=== PATIENT | female | born 1965 | race African-American/Black ===

== ENCOUNTER 2017-09-08 09:54 | Inpatient (IN) | payer OTHER ==
[2017-09-08 10:27] VITALS: BMI 33.3
--- NOTE | 2017-09-08 12:08 | HP ---
CIWA Score - CIWA Score Nausea/Vomitin-Mild Nausea/No Vomiting Muscle Tremors: 4-Moderate,w/Arms Extend Anxiety: 4-Mod. Anxious/Guarded Agitation: 4-Moderately Restless Paroxysmal Sweats: 1-Minimal Palms Moist Orientation: 2-Disoriented Date<2 days Tacttile Disturbances: 1-Very Mild Itch/Numbness Auditory Disturbances: 0-None Visual Disturbances: 0-None Headache: 1-Very Mild CIWA-Ar Total Score: 18 Admission ROS S - HPI Chief Complaint: withdrawal sx Allergies/Adverse Reactions: Allergies Allergy/AdvReac Type Severity Reaction Status Date / Time No Known Allergies Allergy Verified 09/08/17 10:37 History of Present Illness: 51 years old female with long history of alcohol nicotine dependence has hypertension asthma hepatitis c treated bipolar ii methadone 110 mg po daily is admitted to detox Exam Limitations: No Limitations - Ebola screening Have you traveled outside of the country in the last 21 days: No Have you had contact with anyone from an Ebola affected area: No Have you been sick,other than usual withdrawal symptoms: No Do you have a fever: No - Review of Systems Constitutional: Changes in sleep, Weight Stable EENT: reports: Blurred Vision (reading eye glasses) Respiratory: reports: SOB with Exertion, Productive cough (light brownish) Cardiac: reports: No Symptoms Reported GI: reports: Nausea, Poor Fluid Intake, Abdominal cramping : reports: No Symptoms Reported Musculoskeletal: reports: No Symptoms Reported Integumentary: reports: Lumps (left hand human bit 08/25/17 treated at the hospital no acute bleeding denies pain) Neuro: reports: Tremors Endocrine: reports: No Symptoms Reported Hematology: reports: No Symptoms Reported Psychiatric: reports: Judgement Intact, Anxious, Depressed Other Systems: Reviewed and Negative Patient History - Patient Medical History Hx Anemia: No Hx Asthma: Yes Hx Chronic Obstructive Pulmonary Disease (COPD): No Hx Cancer: No Hx Cardiac Disorders: No Hx Congestive Heart Failure: No Hx Hypertension: Yes Hx Hypercholesterolemia: No Hx Pacemaker: No HX Cerebrovascular Accident: No Hx Seizures: No Hx Dementia: No Hx Diabetes: No Hx Gastrointestinal Disorders: No Hx Liver Disease: No Hx Genitourinary Disorders: No Hx Sexually Transmitted Disorders: No Hx Renal Disease (ESRD): No Hx Thyroid Disease: No Hx Human Immunodeficiency Virus (HIV): No Hx Hepatitis C: Yes (treated) Hx Depression: No Hx Suicide Attempt: No Hx Bipolar Disorder: Yes Hx Schizophrenia: No - Patient Surgical History Past Surgical History: No Hx Neurologic Surgery: No Hx Cataract Extraction: No Hx Cardiac Surgery: No Hx Lung Surgery: No Hx Breast Surgery: No Hx Breast Biopsy: No Hx Abdominal Surgery: No Hx Appendectomy: No Hx Cholecystectomy: No Hx Genitourinary Surgery: No Hx Section: No Hx Orthopedic Surgery: No Hx Hysterectomy: No - PPD History Previous Implant?: Yes Documented Results: Negative w/proof Implanted On Prior [facility] Admission?: No PPD to be Administered?: Yes - Reproductive History Patient is a Female of Child Bearing Age (11 -55 yrs old): Yes Last Menstrual Period: 09/08/17 Patient : No - Smoking Cessation Smoking history: Current every day smoker Have you smoked in the past 12 months: Yes Aproximately how many cigarettes per day: 20 Cigars Per Day: 0 Hx Chewing Tobacco Use: No Initiated information on smoking cessation: Yes 'Breaking Loose' booklet given: 09/08/17 - Substance & Tx. History Hx Alcohol Use: Yes Hx Substance Use: Yes Substance Use Type: Alcohol, Cocaine, Heroin, Tranquilizers Hx Substance Use Treatment: Yes (07/2017 [facility]) - Substances Abused Alcohol Route: Oral Frequency: Daily Amount used: rum(6 nips)(5-double nips)x50oz Age of first use: 33 Date of Last Use: 09/08/17 Cocaine Route: Smoking Frequency: Daily Amount used: $300 Age of first use: 43 Date of Last Use: 09/08/17 Heroin Route: Inhalation Frequency: Daily Amount used: 3-4 bags Age of first use: 36 Date of Last Use: 09/07/17 Family Disease History - Family Disease History Family Disease History: Diabetes: Father (), Heart Disease: Mother ( ), Brother (), Other: Father, Mother, Brother, Sister () Admission Physical Exam S - Vital Signs Vital Signs: Vital Signs - 24 hr 09/08/17 10:10 Temperature 97.3 F L Pulse Rate 74 Respiratory 18 Rate Blood Pressure 169/90 - Physical General Appearance: Yes: Appropriately Dressed, Mild Distress, Tremorous, Irritable, Sweating, Anxious HEENTM: Yes: Hearing grossly Normal, Normal ENT Inspection, Normocephalic, Normal Voice Respiratory: Yes: Chest Non-Tender, No Respiratory Distress, No Accessory Muscle Use, Wheezing, Inspiration Neck: Yes: Supple, Trachea in good position Breast: Yes: Breasts Symetrical Cardiology: Yes: Regular Rhythm, Regular Rate, S1, S2 Abdominal: Yes: Normal Bowel Sounds, Non Tender, Flat Genitourinary: Yes: Within Normal Limits Back: Yes: Normal Inspection Musculoskeletal: Yes: full range of Motion, Gait Steady Extremities: Yes: Normal Inspection (hand bit wound), Normal Range of Motion, Non-Tender, Tremors Neurological: Yes: Alert, Motor Strength 5/5, Normal Response, Depressed Affect Integumentary: Yes: Warm Lymphatic: Yes: Within Normal Limits - Diagnostic (1) Alcohol dependence with uncomplicated withdrawal Current Visit: Yes Status: Acute (2) Nicotine dependence Current Visit: Yes Status: Acute Qualifiers: Nicotine product type: cigarettes Substance use status: in withdrawal Qualified Code(s): F17.213 - Nicotine dependence, cigarettes, with withdrawal (3) Hepatitis C Current Visit: Yes Status: Resolved Qualifiers: Viral hepatitis chronicity: unspecified Hepatic coma status: without hepatic coma Qualified Code(s): B19.20 - Unspecified viral hepatitis C without hepatic coma Comment: treated completed (4) Asthma Current Visit: Yes Status: Chronic Qualifiers: Asthma severity: mild Asthma persistence: intermittent Asthma complication type: with status asthmaticus Qualified Code(s): J45.22 - Mild intermittent asthma with status asthmaticus (5) Hypertension Current Visit: Yes Status: Chronic Qualifiers: Hypertension type: essential hypertension Qualified Code(s): I10 - Essential (primary) hypertension (6) Methadone maintenance therapy patient Current Visit: Yes Status: Chronic Comment: 110 mg verified (7) Bipolar II disorder Current Visit: Yes Status: Suspected Cleared for Admission [facility] - Detox or Rehab [facility] Level of Care: Medically Managed Detox Regimen/Protocol: Librium [facility] Breath Alcohol Content Breath Alcohol Content: 0 Urine Pregancy Test - Result Urine Test Results: Negative- NO Line Present Urine Drug Screen - Results Drug Screen Negative: No Urine Drug Screen Results: BERNARDO-Cocaine, OPI-Opiates, PCP-Phencyclidine, BZO- Benzodiazepines, MTD-Methadone
[2017-09-08] MEDS ORDERED: NICOTINE POLACRILEX 4 MG GUM BUC PRN (12:14)
[2017-09-08] MEDS ORDERED: MAGNESIUM HYDROX 2400MG/30ML ORAL SUSPENSION 30 ML CUP PO PRN (12:14)
[2017-09-08] MEDS ORDERED: MAG HYDROX/AL HYDROX/SIMETH 30 ML UNIT-DOSE CUP PO PRN (12:14)
[2017-09-08] MEDS ORDERED: P-EPHED 60MG/TRIPROLIDI 2.5MG TABLET PO PRN (12:14)
[2017-09-08] MEDS ORDERED: MAGNESIUM CITRATE 300 ML BOTTLE PO PRN (12:14)
[2017-09-08] MEDS ORDERED: MENTHOL/PHENOL 1 EACH UD MM PRN (12:14)
[2017-09-08] MEDS ORDERED: ACETAMINOPHEN 325 MG TABLET (FP) PO PRN (12:14)
[2017-09-08] MEDS ORDERED: LOPERAMIDE HCL 2 MG CAPSULE PO PRN (12:14)
[2017-09-08] MEDS ORDERED: guaiFENesin/D-METHORPHAN HB 10 ML UNIT-DOSE CUPS PO PRN (12:14)
[2017-09-08] MEDS ORDERED: chlordiazePOXIDE HCL 25 MG CAPSULE PO PRN (12:14)
[2017-09-08] MEDS ORDERED: ALBUTEROL SO4 0.083% IH SOL 2.5 MG/3 ML VIAL.NEB. NEB PRN (12:22)
[2017-09-08] MEDS: amLODIPine BESYLATE 10 MG TABLET (FP) PO SCH (13:53)
[2017-09-08] MEDS: predniSONE 5 MG TABLET (UD) PO SCH (14:30)
--- NOTE | 2017-09-08 15:06 | EKG ---
Test Reason : Blood Pressure : / mmHG Vent. Rate : 066 BPM Atrial Rate : 066 BPM P-R Int : 184 ms QRS Dur : 084 ms QT Int : 390 ms P-R-T Axes : 034 035 035 degrees QTc Int : 408 ms NORMAL SINUS RHYTHM NONSPECIFIC T WAVE ABNORMALITY ABNORMAL ECG NO PREVIOUS ECGS AVAILABLE Confirmed by MD DESIRAE, BETHANIE ([id number]) on 09/08/2017 3:06:08 PM Referred By: Confirmed By:BETHANIE MERRILL MD
[2017-09-08 16:48] LABS: URINE APPEARANCE CLOUDY; URINE BILIRUBIN NEGATIVE (NEGATIVE); URINE BLOOD 3+ (NEGATIVE); URINE COLOR AMBER; URINE GLUCOSE (UA) NEGATIVE (NEGATIVE); URINE KETONE NEGATIVE (NEGATIVE); URINE LEUK ESTERASE NEGATIVE (NEGATIVE); URINE NITRITE NEGATIVE (NEGATIVE); URINE UROBILINOGEN NEGATIVE mg/dL (0.2-1.0)
[2017-09-08 16:55] LABS: URINE PROTEIN 2+ (NEGATIVE)
--- NOTE | 2017-09-08 17:15 | PN ---
S Progress Note Note: Doula approached patient for psychiatric consultation. Pt. refused. Stated, "i' m to tired to speak."
[2017-09-08 17:28] LABS: EPI CELLS FEW /HPF (FEW); URINE BACTERIA RARE /hpf (NONE SEEN); URINE MUCUS RARE
[2017-09-08] MEDS: MINERAL OIL/PETROLAT/WATER TOPICAL CREAM 113 GM JAR TP SCH (22:30)
[2017-09-08] MEDS: chlordiazePOXIDE HCL 25 MG CAPSULE PO SCH (22:30)
[2017-09-08] MEDS: THIAMINE HCL 100 MG TABLET (FP) PO SCH (22:30)
[2017-09-08] MEDS: NAPROXEN 500 MG TABLET (FP) PO PRN (22:30)
[2017-09-08] MEDS: CLOTRIMAZOLE 1% CREAM 15 GM TUBE TP SCH (22:31)
[2017-09-08] MEDS: cloNIDine HCL 0.1 MG TABLET PO PRN (22:32)
[2017-09-09] MEDS: chlordiazePOXIDE HCL 25 MG CAPSULE PO SCH ×4 (05:31→22:23)
[2017-09-09] MEDS: ALBUTEROL SO4 18 GM HFA INHALER IH PRN ×2 (05:51→22:30)
--- NOTE | 2017-09-09 07:42 | CONSULT ---
[facility] Psychiatric Consult - Data Date of interview: 09/09/17 Admission source: [facility] Identifying data: This is 51 years old female , mother of one, unemployed, , living with , on [place], with no psychiatric hospitalization history , history of Bipolar II. Disorder, intoxicated wioth: Alcohol, PCP, Cocaine, Methadone qand Nicotine Substance Abuse History: - Substances Abused. Alcohol. Route: Oral. Frequency: Daily. Amount used: rum(6 nips)(5-double nips)x50oz. Age of first use: 33. Date of Last Use: 09/08/17. Cocaine. Route: Smoking. Frequency: Daily. Amount used: $300. Age of first use: 43. Date of Last Use: 09/08/17. Heroin. Route: Inhalation. Frequency: Daily. Amount used: 3-4 bags. Age of first use: 36. Date of Last Use: 09/07/17 Medical History: HepC+, Asthma, HTN, MMTP history Psychiatric History: Patient reports history of Bipolar II Disorder, reports taking prior to admission : Trazodone 100mg po qhs Physical/Sexual Abuse/Trauma History: Denies Additional Comment: Trazodone 100mg po qhs Mental Status Exam - Mental Status Exam Alert and Oriented to: Person Cognitive Function: Fair Patient Appearance: Unkempt Mood: Sad Affect: Flat Patient Behavior: Sedated Speech Pattern: Delayed Voice Loudness: Mildly Soft/Quiet Thought Process: Circumstantial Thought Disorder: Being Controlled Hallucinations: Denies Suicidal Ideation: Denies Homicidal Ideation: Denies Insight/Judgement: Fair Sleep: Difficulty falling asleep Appetite: Fair Muscle strength/Tone: Mild Hypotonicity Gait/Station: Shuffling Additional Comments: Trazodone 100mg po qhs Psychiatric Findings - Problem List ([place] 1, 2,3) (1) PCP (phencyclidine) abuse Current Visit: Yes Status: Acute (2) Cocaine abuse Current Visit: Yes Status: Acute (3) Opioid dependence Current Visit: Yes Status: Acute (4) Alcohol dependence with uncomplicated withdrawal Current Visit: Yes Status: Acute (5) Nicotine dependence Current Visit: Yes Status: Acute Qualifiers: Nicotine product type: cigarettes Substance use status: in withdrawal Qualified Code(s): F17.213 - Nicotine dependence, cigarettes, with withdrawal (6) Methadone maintenance therapy patient Current Visit: Yes Status: Chronic Comment: 110 mg verified - Initial Treatment Plan Initial Treatment Plan: Trazodone 100mg po qhs
[2017-09-09] MEDS ORDERED: METHADONE HCL 40 MG DISPERSABLE TABLET PO SCH (10:00)
[2017-09-09] MEDS ORDERED: METHADONE 80 MG, METHADONE 30 MG PO SCH (10:00)
[2017-09-09] MEDS ORDERED: METHADONE 80 MG, METHADONE 30 MG PO ONE ×2 (10:04→10:22)
[2017-09-09] MEDS ORDERED: METHADONE HCL 40 MG DISPERSABLE TABLET ONE (10:06)
[2017-09-09] MEDS ORDERED: METHADONE HCL 10 MG TABLET ONE (10:06)
[2017-09-09 10:08] LABS: HEMATOCRIT 41.4 % (32.4-45.2); HEMOGLOBIN 13.2 GM/dL (10.7-15.3); MCH 27.3 pg (25.7-33.7); MCHC 31.9 g/dl (32.0-36.0); MEAN CELL VOLUME 85.6 fl (80-96); MEAN PLT VOLUME 8.3 fl (7.5-11.1); PLATELET COUNT 295 K/MM3 (134-434); RBC 4.84 M/mm3 (3.60-5.2); RDW 15.6 % (11.6-15.6); WHITE BLOOD COUNT 6.4 K/mm3 (4.0-10.0)
--- NOTE | 2017-09-09 10:08 | PN ---
[facility] CIWA - CIWA Score Nausea/Vomitin-Mild Nausea/No Vomiting Muscle Tremors: 4-Moderate,w/Arms Extend Anxiety: 4-Mod. Anxious/Guarded Agitation: 4-Moderately Restless Paroxysmal Sweats: 1-Minimal Palms Moist Orientation: 0-Oriented Tacttile Disturbances: 0-None Auditory Disturbances: 0-None Visual Disturbances: 0-None Headache: 0-None Present CIWA-Ar Total Score: 14 [facility] Progress Note (SOAP) Subjective: tremor anxiety sweat Objective: 09/09/17 10:07 Vital Signs Temperature 97.5 F L 09/09/17 06:23 Pulse Rate 63 09/09/17 06:23 Respiratory Rate 16 09/09/17 06:23 Blood Pressure 150/80 09/09/17 06:23 O2 Sat by Pulse Oximetry (%) Laboratory Last Values Urine Color Suzanna 09/08/17 15:30 Urine Appearance Cloudy 09/08/17 15:30 Urine pH 5.0 (5.0-8.0) 09/08/17 15:30 Ur Specific [place] 1.028 (1.001-1.035) 09/08/17 15:30 Urine Protein 2+ (NEGATIVE) H 09/08/17 15:30 Urine Glucose (UA) Negative (NEGATIVE) 09/08/17 15:30 Urine Ketones Negative (NEGATIVE) 09/08/17 15:30 Urine Blood 3+ (NEGATIVE) H 09/08/17 15:30 Urine Nitrite Negative (NEGATIVE) 09/08/17 15:30 Urine Bilirubin Negative (NEGATIVE) 09/08/17 15:30 Urine Urobilinogen Negative mg/dL (0.2-1.0) 09/08/17 15:30 Ur Leukocyte Esterase Negative (NEGATIVE) 09/08/17 15:30 Urine WBC (Auto) 88 /hpf (3-5) 09/08/17 15:30 Urine RBC (Auto) 2475 /hpf (0-3) 09/08/17 15:30 Ur Epithelial Cells Few /HPF (FEW) 09/08/17 15:30 Urine Bacteria Rare /hpf (NONE SEEN) 09/08/17 15:30 Urine Mucus Rare 09/08/17 15:30 HIV 1&2 Antibody Screen Negative 09/08/17 11:50 HIV P24 Antigen Negative 09/08/17 11:50 lab notedf Assessment: 09/09/17 10:08 withdrawal sx Plan: continue detox
[2017-09-09 10:14] LABS: CHLORIDE 103 mmol/L (98-107); POTASSIUM 4.1 mmol/L (3.5-5.1); SODIUM 140 mmol/L (136-145)
[2017-09-09 10:34] LABS: ALBUMIN 3.7 g/dl (3.4-5.0); ALK PHOS 96 U/L (45-117); ANION GAP 9 (8-16); BILIRUBIN,TOTAL 0.5 mg/dL (0.2-1.0); BLOOD UREA NITROGEN 17 mg/dL (7-18); CALCIUM 9.1 mg/dL (8.5-10.1); CO2 28 mmol/L (21-32); GLUCOSE,RANDOM 95 mg/dL (74-106); SGOT/AST 25 U/L (15-37); SGPT/ALT 27 U/L (12-78); TOT PROT 7.9 g/dl (6.4-8.2)
[2017-09-09] MEDS: CLOTRIMAZOLE 1% CREAM 15 GM TUBE TP SCH ×2 (10:51→22:30)
[2017-09-09] MEDS: HYDROCHLOROTHIAZIDE 12.5 MG CAPSULE (FP) PO SCH (10:51)
[2017-09-09] MEDS: PRENATAL VITAMINS W/ FOLIC ACID TABLET (FP) PO SCH (10:51)
[2017-09-09] MEDS: predniSONE 5 MG TABLET (UD) PO SCH (10:51)
[2017-09-09] MEDS: amLODIPine BESYLATE 10 MG TABLET (FP) PO SCH (10:51)
[2017-09-09] MEDS: NICOTINE 21 MG/24 HOURS TOPICAL PATCH TD SCH (10:52)
[2017-09-09] MEDS: LISINOPRIL 10 MG TABLET (FP) PO SCH (10:53)
[2017-09-09] MEDS: cloNIDine HCL 0.1 MG TABLET PO PRN (22:23)
[2017-09-09] MEDS: traZODone HCL 100 MG TABLET (FP) PO SCH (22:24)
[2017-09-09] MEDS: THIAMINE HCL 100 MG TABLET (FP) PO SCH (22:24)
[2017-09-09] MEDS: NAPROXEN 500 MG TABLET (FP) PO PRN (22:24)
[2017-09-09] MEDS: MINERAL OIL/PETROLAT/WATER TOPICAL CREAM 113 GM JAR TP SCH (22:26)
[2017-09-09 23:43] LABS: URINE APPEARANCE CLEAR; URINE BILIRUBIN NEGATIVE (NEGATIVE); URINE BLOOD 3+ (NEGATIVE); URINE COLOR LTYELLOW; URINE GLUCOSE (UA) NEGATIVE (NEGATIVE); URINE KETONE NEGATIVE (NEGATIVE); URINE LEUK ESTERASE TRACE (NEGATIVE); URINE NITRITE NEGATIVE (NEGATIVE); URINE PROTEIN NEGATIVE (NEGATIVE); URINE UROBILINOGEN NEGATIVE mg/dL (0.2-1.0)
[2017-09-09 23:50] LABS: EPI CELLS RARE /HPF (FEW); URINE MUCUS RARE
[2017-09-10] MEDS ORDERED: METHADONE HCL 40 MG DISPERSABLE TABLET ONE (04:18)
[2017-09-10] MEDS ORDERED: METHADONE HCL 10 MG TABLET ONE (04:18)
[2017-09-10] MEDS: METHADONE 80 MG, METHADONE 30 MG PO SCH (05:48)
[2017-09-10] MEDS: chlordiazePOXIDE HCL 25 MG CAPSULE PO SCH ×3 (05:48→16:48)
[2017-09-10] MEDS ORDERED: METHADONE HCL 10 MG TABLET PO SCH (06:00)
--- NOTE | 2017-09-10 09:35 | PN ---
S CIWA - CIWA Score Nausea/Vomitin-No Nausea/No Vomiting Muscle Tremors: 3 Anxiety: 3 Agitation: 3 Paroxysmal Sweats: 1-Minimal Palms Moist Orientation: 0-Oriented Tacttile Disturbances: 0-None Auditory Disturbances: 0-None Visual Disturbances: 0-None Headache: 0-None Present CIWA-Ar Total Score: 10 [facility] Progress Note (SOAP) Subjective: tremor sweat anxiety constipation Objective: 09/10/17 09:34 Vital Signs Temperature 98.1 F 09/10/17 06:00 Pulse Rate 73 09/10/17 06:00 Respiratory Rate 18 09/10/17 06:00 Blood Pressure 121/87 09/10/17 06:00 O2 Sat by Pulse Oximetry (%) Laboratory Last Values WBC 6.4 K/mm3 (4.0-10.0) 09/09/17 05:50 RBC 4.84 M/mm3 (3.60-5.2) 09/09/17 05:50 Hgb 13.2 GM/dL (10.7-15.3) 09/09/17 05:50 Hct 41.4 % (32.4-45.2) 09/09/17 05:50 MCV 85.6 fl (80-96) 09/09/17 05:50 MCH 27.3 pg (25.7-33.7) 09/09/17 05:50 MCHC 31.9 g/dl (32.0-36.0) L 09/09/17 05:50 RDW 15.6 % (11.6-15.6) 09/09/17 05:50 Plt Count 295 K/MM3 (134-434) 09/09/17 05:50 MPV 8.3 fl (7.5-11.1) 09/09/17 05:50 Sodium 140 mmol/L (136-145) 09/09/17 05:50 Potassium 4.1 mmol/L (3.5-5.1) 09/09/17 05:50 Chloride 103 mmol/L (98-107) 09/09/17 05:50 Carbon Dioxide 28 mmol/L (21-32) 09/09/17 05:50 Anion Gap 9 (8-16) 09/09/17 05:50 BUN 17 mg/dL (7-18) 09/09/17 05:50 Creatinine 1.0 mg/dL (0.55-1.02) 09/09/17 05:50 Creat Clearance w eGFR 58.69 (>60) 09/09/17 05:50 Random Glucose 95 mg/dL (74-106) 09/09/17 05:50 Calcium 9.1 mg/dL (8.5-10.1) 09/09/17 05:50 Total Bilirubin 0.5 mg/dL (0.2-1.0) 09/09/17 05:50 AST 25 U/L (15-37) 09/09/17 05:50 ALT 27 U/L (12-78) 09/09/17 05:50 Alkaline Phosphatase 96 U/L (45-117) 09/09/17 05:50 Total Protein 7.9 g/dl (6.4-8.2) 09/09/17 05:50 Albumin 3.7 g/dl (3.4-5.0) 09/09/17 05:50 Urine Color Ltyellow 09/09/17 23:25 Urine Appearance Clear 09/09/17 23:25 Urine pH 6.0 (5.0-8.0) 09/09/17 23:25 Ur Specific [place] 1.010 (1.001-1.035) 09/09/17 23:25 Urine Protein Negative (NEGATIVE) 09/09/17 23:25 Urine Glucose (UA) Negative (NEGATIVE) 09/09/17 23:25 Urine Ketones Negative (NEGATIVE) 09/09/17 23:25 Urine Blood 3+ (NEGATIVE) H 09/09/17 23:25 Urine Nitrite Negative (NEGATIVE) 09/09/17 23:25 Urine Bilirubin Negative (NEGATIVE) 09/09/17 23:25 Urine Urobilinogen Negative mg/dL (0.2-1.0) 09/09/17 23:25 Ur Leukocyte Esterase Trace (NEGATIVE) 09/09/17 23:25 Urine WBC (Auto) 26 /hpf (3-5) 09/09/17 23:25 Urine RBC (Auto) 263 /hpf (0-3) 09/09/17 23:25 Ur Epithelial Cells Rare /HPF (FEW) 09/09/17 23:25 Urine Bacteria Rare /hpf (NONE SEEN) 09/08/17 15:30 Urine Mucus Rare 09/09/17 23:25 RPR Titer Nonreactive (NONREACTIVE) 09/09/17 05:50 HIV 1&2 Antibody Screen Negative 09/08/17 11:50 HIV P24 Antigen Negative 09/08/17 11:50 lab noted Assessment: 09/10/17 09:34 withdrawal sx constipation Plan: continue detox colace 100 mg tid senna II tab po hs
[2017-09-10] MEDS: predniSONE 5 MG TABLET (UD) PO SCH (10:45)
[2017-09-10] MEDS: HYDROCHLOROTHIAZIDE 12.5 MG CAPSULE (FP) PO SCH (10:45)
[2017-09-10] MEDS: CLOTRIMAZOLE 1% CREAM 15 GM TUBE TP SCH ×2 (10:45→23:05)
[2017-09-10] MEDS: PRENATAL VITAMINS W/ FOLIC ACID TABLET (FP) PO SCH (10:45)
[2017-09-10] MEDS: amLODIPine BESYLATE 10 MG TABLET (FP) PO SCH (10:45)
[2017-09-10] MEDS: DOCUSATE SODIUM 100 MG CAPSULE (FP) PO SCH ×3 (10:45→22:34)
[2017-09-10] MEDS: NICOTINE 21 MG/24 HOURS TOPICAL PATCH TD SCH (10:45)
[2017-09-10] MEDS: LISINOPRIL 10 MG TABLET (FP) PO SCH (10:45)
--- NOTE | 2017-09-10 11:06 | EKG ---
Test Reason : Blood Pressure : / mmHG Vent. Rate : 062 BPM Atrial Rate : 062 BPM P-R Int : 178 ms QRS Dur : 082 ms QT Int : 412 ms P-R-T Axes : 028 048 023 degrees QTc Int : 418 ms NORMAL SINUS RHYTHM SEPTAL INFARCT , AGE UNDETERMINED ABNORMAL ECG WHEN COMPARED WITH ECG OF 08-SEP-2017 14:50, NO SIGNIFICANT CHANGE WAS FOUND Confirmed by GENNARO HORN MD ([id number]) on 09/10/2017 11:06:28 AM Referred By: Confirmed By:GENNARO HORN MD
[2017-09-10] MEDS ORDERED: SENNOSIDES 8.6MG TABLET (FP) PO SCH (22:00)
[2017-09-10] MEDS: cloNIDine HCL 0.1 MG TABLET PO PRN (22:34)
[2017-09-10] MEDS: NAPROXEN 500 MG TABLET (FP) PO PRN (22:34)
[2017-09-10] MEDS: traZODone HCL 100 MG TABLET (FP) PO SCH (22:34)
[2017-09-10] MEDS: chlordiazePOXIDE 5 MG CAPSULE PO SCH (22:34)
[2017-09-10] MEDS: THIAMINE HCL 100 MG TABLET (FP) PO SCH (22:34)
[2017-09-10] MEDS: MINERAL OIL/PETROLAT/WATER TOPICAL CREAM 113 GM JAR TP SCH (23:05)
[2017-09-11] MEDS ORDERED: METHADONE HCL 40 MG DISPERSABLE TABLET ONE (04:39)
[2017-09-11] MEDS ORDERED: METHADONE HCL 10 MG TABLET ONE (04:39)
[2017-09-11] MEDS: chlordiazePOXIDE 5 MG CAPSULE PO SCH (05:53)
[2017-09-11] MEDS: METHADONE 80 MG, METHADONE 30 MG PO SCH (05:54)
[2017-09-11] MEDS: DOCUSATE SODIUM 100 MG CAPSULE (FP) PO SCH (05:56)
[2017-09-11 06:34] VITALS: TEMP 97.9
[2017-09-11] MEDS: PRENATAL VITAMINS W/ FOLIC ACID TABLET (FP) PO SCH (10:01)
[2017-09-11] MEDS: predniSONE 5 MG TABLET (UD) PO SCH (10:02)
[2017-09-11] MEDS: amLODIPine BESYLATE 10 MG TABLET (FP) PO SCH (10:02)
[2017-09-11] MEDS: LISINOPRIL 10 MG TABLET (FP) PO SCH (10:02)
--- NOTE | 2017-09-11 10:10 | DS ---
[facility] Detox Discharge Summary Admission Date: 09/08/17 Discharge Date: 09/11/17 - History Present History: Alcohol Dependence, Cocaine Dependence, MMTP Additional Comments: FOLLOW UP WITH AFTER CARE PROGRAM ARRANGEMENT STABLE FOR DISCHARGE TODAY Pertinent Past History: ASTHMA HYPERTENSION HEPATITIS C MMTP BIPOLAR DISORDER - Physical Exam Results Vital Signs: Vital Signs Temperature 97.9 F 09/11/17 06:00 Pulse Rate 64 09/11/17 06:00 Respiratory Rate 18 09/11/17 06:00 Blood Pressure 143/74 09/11/17 06:00 O2 Sat by Pulse Oximetry (%) Pertinent Admission Physical Exam Findings: WITHDRAWAL SYMPTOM AND FINDING - Treatment Hospital Course: Detox Protocol Followed, Detoxed Safely, Responded well, Discharged Condition Good, Rehab Referral Accepted ([facility]) Patient has Accepted a Rehab Referral to: [facility] - Medication Discharge Medications: Ambulatory Orders Albuterol Sulfate Inhaler - [Ventolin Hfa Inhaler -] 1 - 2 inh PO QID PRN Alprazolam [Xanax] 1 mg PO DAILY 09/08/17 Amlodipine Besylate [Norvasc -] 10 mg PO DAILY 09/08/17 Clonidine HCl 0.3 mg PO BID 09/08/17 Hydrochlorothiazide [Hctz -] 12.5 mg PO DAILY 09/08/17 Methadone [Dolophine -] 110 mg PO DAILY 09/08/17 Miscellaneous Medical Supply [Breast Pump, Electronic] 1 each NR ASDIR 09/08/17 Naproxen [Naprosyn -] 500 mg PO TID PRN 09/08/17 Prednisone [Deltasone -] 5 mg PO DAILY 09/08/17 Trazodone HCl [Desyrel -] 100 mg PO HS 09/08/17 Trazodone HCl [Desyrel -] 100 mg PO HS #30 tablet 09/09/17 - Diagnosis (1) Alcohol dependence with uncomplicated withdrawal Current Visit: Yes Status: Acute (2) Cocaine abuse Current Visit: Yes Status: Acute (3) Nicotine dependence Current Visit: Yes Status: Acute Qualifiers: Nicotine product type: cigarettes Substance use status: in withdrawal Qualified Code(s): F17.213 - Nicotine dependence, cigarettes, with withdrawal (4) Asthma Current Visit: Yes Status: Chronic Qualifiers: Asthma severity: mild Asthma persistence: intermittent Asthma complication type: with status asthmaticus Qualified Code(s): J45.22 - Mild intermittent asthma with status asthmaticus (5) Hypertension Current Visit: Yes Status: Chronic Qualifiers: Hypertension type: essential hypertension Qualified Code(s): I10 - Essential (primary) hypertension (6) Methadone maintenance therapy patient Current Visit: Yes Status: Chronic (7) Bipolar II disorder Current Visit: Yes Status: Suspected (8) Hepatitis C Current Visit: No Status: Resolved Qualifiers: Viral hepatitis chronicity: unspecified Hepatic coma status: without hepatic coma Qualified Code(s): B19.20 - Unspecified viral hepatitis C without hepatic coma - AMA Did Patient Leave Against Medical Advice: No
[2017-09-11] MEDS: HYDROCHLOROTHIAZIDE 12.5 MG CAPSULE (FP) PO SCH (10:17)
[2017-09-11] MEDS: CLOTRIMAZOLE 1% CREAM 15 GM TUBE TP SCH (10:18)
[2017-09-11] MEDS: NICOTINE 21 MG/24 HOURS TOPICAL PATCH TD SCH (10:18)
[2017-09-11 10:19] VITALS: BP 135/63; PULSE 71
[2017-09-11] MEDS ORDERED: cloNIDine HCL 0.1 MG TABLET PO SCH (22:00)
[2017-09-11] MEDS ORDERED: chlordiazePOXIDE HCL 10 MG CAPSULE PO SCH (23:00)
== END 2017-09-11 10:50 | disposition home or self-care (01) | DRG 773 ==
LOC: YASAS 09:54 → Y6N 11:57
PROVIDERS: ADMIT Internal Medicine; ATTEND Internal Medicine
PROC: HZ2ZZZZ Detoxification Services for Substance Abuse Treatment (ICD-10-PCS; principal; 2017-09-08)
DX: F11.20 Opioid dependence, uncomplicated (principal); F10.230 Alcohol dependence with withdrawal, uncomplicated; F14.20 Cocaine dependence, uncomplicated; F16.10 Hallucinogen abuse, uncomplicated; F17.213 Nicotine dependence, cigarettes, with withdrawal; F31.81 Bipolar II disorder; I10 Essential (primary) hypertension; J45.22 Mild intermittent asthma with status asthmaticus; B18.2 Chronic viral hepatitis C
CPT/HCPCS: 36415; 80053; 81003; 81015; 85027; 86593; 87389; 93005; 93010; J0735